=== PATIENT | male | born 1970 | race American Indian/Alaskan Native ===

== ENCOUNTER 2019-01-17 07:55 | Day surgery (SDC) | payer OTHER ==
[~2019-01-17 07:55] MED LIST: WATER FOR IRRIG STERILE ONE
[2019-01-17] MEDS ORDERED: XYLOCAINE MPF 2% ONE (09:00)
[2019-01-17] MEDS ORDERED: NACL 0.9% 1000 ML 1,000 ML IV SCH (09:00)
--- NOTE | 2019-01-17 09:07 | Anesthesia Consultation ---
Anesthesia Consult and Med Hx Date of service: 01/17/19 - Airway Anesthetic Teeth Evaluation: Good ROM Head & Neck: Adequate Mental/Hyoid Distance: Adequate Mallampati Class: Class III Intubation Access Assessment: Possibly Difficult - Pulmonary Exam CTA: Yes - Cardiac Exam Cardiac Exam: RRR - Pre-Operative Health Status ASA Pre-Surgery Classification: ASA2 Proposed Anesthetic Plan: MAC - Pulmonary Hx Smoking: No Hx Respiratory Symptoms: No Hx Sleep Apnea: Yes (noncompliant with CPAP) - Cardiovascular System Hx Hypertension: No Hx Heart Attack/AMI: No Hx Angina: Yes (remote hx with neg cardiac work up, per patient) - Central Nervous System CVA: No - Endocrine Hx Renal Disease: No Hx Liver Disease: No Hx Insulin Dependent Diabetes: No Hx Non-Insulin Dependent Diabetes: No Hx Thyroid Disease: No - Other Systems Hx Obesity: No - Additional Comments Anesthesia Medical History Comments: No hx anesthetic complications.
--- NOTE | 2019-01-17 09:08 | Anesthesia Day of Surgery ---
Anesthesia Day of Surgery - Day of Surgery Patient Examined: Yes Patient H&P Reviewed: Yes Patient is NPO: Yes
[2019-01-17] MEDS ORDERED: DIPRIVAN 10 MG/ML IV ONE ×2 (09:54)
--- NOTE | 2019-01-17 10:27 | Procedure Note ---
Date of procedure: 01/17/19 Pre-op diagnosis: Colon Polyp Screening/ F/H/O Colon Polyps Post-op diagnosis: other (No Colon Polyps noted/ Minor,Left Colon Diverticuli/Minor,Internal Hemorrhoid) Procedure: Colonoscopy Anesthesia: MAC Surgeon: JONNIE HORTON Estimated blood loss: none Pathology: none Condition: stable Disposition: same day (Resume home medication and encourage fiver intake. Follow up in 1 to 2 weeks ([phone]).)
--- NOTE | 2019-01-17 10:40 | Operative Report ---
PROCEDURE: Colonoscopy. INDICATIONS: This is a 48-year-old -[place] gentleman who has a family history of colon polyps, colonoscopy and underlying history of irritable bowel syndrome. Colonoscopy was done as part of colon polyp screening. Procedure was done after getting informed consent. Initial rectal exam was unremarkable. Instrument was passed through the rectum onto the cecum, which was identified with ileocecal valve and the appendiceal orifice. The scope was retroflexed in the cecum. No additional pathology was noted. The cecum, ascending colon, transverse colon showed normal mucosa. There were a few minor diverticula noted in the left colon and the rectum showed some minor internal hemorrhoid on the retroverted view. There were no biopsies done. No bleeding associated with the procedure. No complications associated with the procedure. ASSESSMENT: Colon polyp screening, no colon polyps noted. Minor left colon diverticular disease, minor internal hemorrhoid. PLAN: To ask the patient resume previous home medication, encourage fiber supplements and follow up in the office in 1-2 weeks' time. Procedure was done in the GI lab with assistance of the GI lab team, which included Pallavi HIGGINS and Marlyn aldridge as well as with assistance of anesthesia. [facility]# [id number] EBONIE/OPHELIA
[2019-01-17 10:54] VITALS: BP 120/81
== END 2019-01-17 07:56 | disposition home or self-care (01) ==
LOC: GIO 07:55
DX: K57.30 Diverticulosis of large intestine without perforation or abscess without bleeding (principal); K64.8 Other hemorrhoids; G47.30 Sleep apnea, unspecified; K52.9 Noninfective gastroenteritis and colitis, unspecified; M19.90 Unspecified osteoarthritis, unspecified site; Z86.010 Personal history of colon polyps; Z79.899 Other long term (current) drug therapy; Z79.01 Long term (current) use of anticoagulants; Z88.1 Allergy status to other antibiotic agents; Z88.8 Allergy status to other drugs, medicaments and biological substances; Z98.890 Other specified postprocedural states
CPT/HCPCS: J2704; J7030